=== PATIENT | female | born 1930 | race Caucasian/White ===

== ENCOUNTER 2016-08-07 05:08 | Inpatient (IN) | payer OTHER, BC ==
[~2016-08-07] VITALS: Ht 160 cm; Wt 51.7 kg
[~2016-08-07 05:08] MED LIST: ARICEPT10 MG PO; ASPIR 8181 M1 PO; BENICAR40 MG PO; CALAN SR,COVER180 MG PO; CEFUROXIME500 MG PO; DONEPEZIL HCL10 MG PO; EFFIENT5 MG PO; LIDODERM 5% P1 PATCH TD; LOPRESSOR25 MG PO; NEURONTIN300 MG PO; THERAGRAN1 TABLET PO; VALTREX50 MG/ML PO; VITAMIN B COMP1 EACH PO; VITAMIN D-32000 UNI2 PO
[2016-08-07 07:17] LABS: HEMATOCRIT 35.5 % (36.0-46.0); MCHC 33.5 G/DL (30.0-36.0); MCV 92.4 FL (83-99); PLATELET COUNT 200 K/uL (156-360); RBC DIS.WIDTH-CV 12.8 % (11.8-14.6); RBC DIS.WIDTH-SD 41.7 % (39-53); RED BLOOD COUNT 3.84 M/uL (3.80-5.20)
[2016-08-07 07:50] LABS: ANION GAP 6 MEQ/L (2-14); CHLORIDE 107 MEQ/L (99-109); GFR ESTIMATE (CALCULATED) > 59 mL/min/; GLUCOSE 100 mg/dL (70-99); SAMPLE HEMOLYSIS CHECK 0; SAMPLE ICTERIC CHECK 0; SAMPLE LIPEMIA CHECK 0; SODIUM 142 MEQ/L (136-147); UREA NITROGEN (BUN) 17 mg/dL (9-23)
[2016-08-07 07:54] LABS: TROP-I INTERPRETATION NEGATIVE; TROPONIN-I 0.01 ng/mL (0.0-0.30)
[2016-08-07 10:17] LABS: ADD MIUA? YES; BILIRUBIN NEGATIVE; BLOOD NEGATIVE; COLOR YELLOW ((YELLOW)); GLUCOSE (STRIP) NEGATIVE; KETONES NEGATIVE; LEUKOCYTES SMALL; NITRITE NEGATIVE; PROTEIN (STRIP) NEGATIVE; SPECIFIC GRAVITY 1.012 (1.000-1.030)
[2016-08-07 10:29] VITALS: BP 192/80
[2016-08-07 10:31] LABS: BACTERIA NONE SEEN /HPF; EPITHELIAL CELLS RARE /HPF; MUCUS TRACE /LPF; RED BLOOD CELLS 0-5 /HPF (0-5); UCUL ADDED? NO
[2016-08-07 15:09] VITALS: BP 199/86
[2016-08-07 15:30] VITALS: BP 199/86
[2016-08-07 17:44] LABS: TROP-I INTERPRETATION NEGATIVE; TROPONIN-I 0.02 ng/mL (0.0-0.30)
[2016-08-07] MEDS ORDERED: PLAVIX75 MG PO (18:06)
[2016-08-07 19:40] VITALS: BP 164/72
[2016-08-07 23:17] VITALS: BP 123/56
[2016-08-08 04:17] VITALS: BP 140/65
[2016-08-08 08:14] VITALS: BP 178/72
[2016-08-08 08:38] LABS: HEMATOCRIT 35.6 % (36.0-46.0); MCH 31.2 PG (29.0-34.0); MCHC 33.4 G/DL (30.0-36.0); MCV 93.4 FL (83-99); MEAN PLAT.VOLUME 10.8 uM^3 (9.5-12.4); PLATELET COUNT 182 K/uL (156-360); RBC DIS.WIDTH-CV 13.2 % (11.8-14.6); RBC DIS.WIDTH-SD 44.9 % (39-53); RED BLOOD COUNT 3.81 M/uL (3.80-5.20); WHITE BLOOD COUNT 2.9 K/uL (4.1-10.2)
[2016-08-08 08:54] LABS: ANION GAP 6 MEQ/L (2-14); CHLORIDE 107 MEQ/L (99-109); GFR ESTIMATE (CALCULATED) > 59 mL/min/; GLUCOSE 93 mg/dL (70-99); POTASSIUM 4.1 MEQ/L (3.7-5.4); SAMPLE HEMOLYSIS CHECK 0; SAMPLE ICTERIC CHECK 0; SAMPLE LIPEMIA CHECK 0; SODIUM 142 MEQ/L (136-147); UREA NITROGEN (BUN) 13 mg/dL (9-23)
[2016-08-08 15:31] VITALS: BP 136/64
[2016-08-08 23:23] VITALS: BP 135/64
[2016-08-09] MEDS ORDERED: TYLENOL EXTRA500 MG PO ×2 (00:52→09:59)
[2016-08-09] MEDS ORDERED: MILK OF MAGN PO (00:53)
[2016-08-09] MEDS ORDERED: SENNA8.6 MG PO (00:54)
[2016-08-09 07:25] VITALS: BP 177/75
[2016-08-09] MEDS ORDERED: PERCOCET 5/31 TABLET PO (09:59)
== END 2016-08-09 13:27 | disposition home or self-care (01) | DRG 563 ==
LOC: EME 05:08 → 3EAST 08:29 → EDOF 08:29 → 3EAST 10:14
PROVIDERS: Emergency Medicine; Internal Medicine
DX: S42.291A Other displaced fracture of upper end of right humerus, initial encounter for closed fracture (principal); S80.01XA Contusion of right knee, initial encounter; S00.12XA Contusion of left eyelid and periocular area, initial encounter; W18.39XA Other fall on same level, initial encounter; Y92.002 Bathroom of unspecified non-institutional (private) residence as the place of occurrence of the external cause; I10 Essential (primary) hypertension; E78.5 Hyperlipidemia, unspecified; E20.9 Hypoparathyroidism, unspecified; I25.10 Atherosclerotic heart disease of native coronary artery without angina pectoris; Z95.5 Presence of coronary angioplasty implant and graft; Z66 Do not resuscitate; Z51.5 Encounter for palliative care; Z96.652 Presence of left artificial knee joint
CPT/HCPCS: 70450; 71010; 72170; 73030; 73564; 80048; 81003; 84484; 85027; 93005; 99281; 99285; J1650

== ENCOUNTER 2017-08-10 19:30 | Emergency (ER) | payer OTHER, BC ==
[~2017-08-10] VITALS: Ht 162.6 cm; Wt 55.8 kg
[~2017-08-10 19:30] MED LIST changes: +MILK OF MAGN PO; +PERCOCET 5/31 TABLET PO; +PLAVIX75 MG PO; +SENNA8.6 MG PO; +TYLENOL EXTRA500 MG PO
[2017-08-10 22:15] VITALS: BP 176/71
== END 2017-08-10 22:40 ==
LOC: EME 19:30
DX: S61.411A Laceration without foreign body of right hand, initial encounter (principal); S51.011A Laceration without foreign body of right elbow, initial encounter; S60.221A Contusion of right hand, initial encounter; W06.XXXA Fall from bed, initial encounter; F03.90 Unspecified dementia, unspecified severity, without behavioral disturbance, psychotic disturbance, mood disturbance, and anxiety; I10 Essential (primary) hypertension; I25.10 Atherosclerotic heart disease of native coronary artery without angina pectoris; M15.9 Polyosteoarthritis, unspecified; Z95.5 Presence of coronary angioplasty implant and graft; Z79.02 Long term (current) use of antithrombotics/antiplatelets
CPT/HCPCS: 73030; 73060; 73130; 99281; 99285

== ENCOUNTER 2018-01-22 15:48 | Emergency (ER) | payer OTHER, BC ==
[~2018-01-22] VITALS: Ht 160 cm; Wt 54.6 kg
[2018-01-22 18:56] VITALS: BP 184/84
== END 2018-01-22 18:54 | disposition home or self-care (01) ==
LOC: EME 15:48
DX: S09.90XA Unspecified injury of head, initial encounter (principal); S00.83XA Contusion of other part of head, initial encounter; M25.551 Pain in right hip; W07.XXXA Fall from chair, initial encounter; F03.90 Unspecified dementia, unspecified severity, without behavioral disturbance, psychotic disturbance, mood disturbance, and anxiety; I10 Essential (primary) hypertension; I25.10 Atherosclerotic heart disease of native coronary artery without angina pectoris; Z95.5 Presence of coronary angioplasty implant and graft; Z79.02 Long term (current) use of antithrombotics/antiplatelets
CPT/HCPCS: 70450; 73502; 99281; 99284